=== PATIENT | male | born 1945 | race Caucasian/White ===

== ENCOUNTER → 2017-08-02 | Outpatient (CLI) | payer OTHER ==
[~2017-08-02] MED LIST: ADULT LOW DOSE81 MG PO; ALLOPURINOL 30300 M1 PO; ASPIRIN325 PO; BENICAR40 MG PO; CRESTOR20 MG PO; EFFIENT10 MG PO; FISH OIL 1,001000 M1 PO; GLIPIZIDE XL10 MG PO; GLUCOPHAGE1000 MG PO; LIPITOR10 MG PO; NORVASC10 MG PO; OMEPRAZOLE20 M2 PO; TOPROL XL50 MG PO
== END ==
LOC: ULTRA 11:13
DX: M79.662 Pain in left lower leg (principal)

== ENCOUNTER → 2019-08-16 | Outpatient (CLI) | payer OTHER | LOC: SJCVCIMAG 08:28 | DX: I10 Essential (primary) hypertension (principal); N28.1 Cyst of kidney, acquired; Z87.891 Personal history of nicotine dependence ==

== ENCOUNTER → 2020-06-12 | Outpatient (CLI) | payer OTHER | LOC: SJCVCIMAG 09:32 | PROVIDERS: ATTEND Internal Medicine Cardiovascular Disease | DX: I35.8 Other nonrheumatic aortic valve disorders (principal); I11.9 Hypertensive heart disease without heart failure; I25.10 Atherosclerotic heart disease of native coronary artery without angina pectoris; Z87.891 Personal history of nicotine dependence ==

== ENCOUNTER → 2020-11-19 | Outpatient (CLI) | payer OTHER | LOC: SJCVCIMAG 08:26 | PROVIDERS: ATTEND Internal Medicine Cardiovascular Disease | DX: I08.0 Rheumatic disorders of both mitral and aortic valves (principal); I11.9 Hypertensive heart disease without heart failure; E78.5 Hyperlipidemia, unspecified; I48.91 Unspecified atrial fibrillation; I25.10 Atherosclerotic heart disease of native coronary artery without angina pectoris ==

== ENCOUNTER → 2020-12-10 | Outpatient (CLI) | payer OTHER ==
[~2020-12-10] VITALS: Ht 182.9 cm; Wt 111.0 kg
[2020-12-10 07:59] LABS: HEMATOCRIT 38.9 % (42.0-52.0); HEMOGLOBIN 13.1 gm/dL (14.0-18.0); MCH 34.6 pg (26.0-34.0); MCHC 33.7 g/dL (28.0-37.0); MCV 102.7 fL (80.0-100.0); RBC 3.79 mil/uL (4.50-6.00); RDW 13.2 % (10.5-14.5); WBC 5.9 thou/uL (4.0-11.0)
[2020-12-10 08:05] VITALS: BP 171/81
[2020-12-10 08:10] LABS: CALCIUM 9.2 mg/dL (8.5-10.1); CREATININE 0.9 mg/dL (0.7-1.3); POTASSIUM 3.4 mmol/L (3.5-5.1); TOTAL BILIRUBIN 0.4 mg/dL (0.2-1.0)
[2020-12-10 08:27] LABS: TOTAL PROTEIN 7.4 g/dL (6.4-8.2)
== END | disposition home or self-care (01) ==
LOC: CATH 06:41
PROVIDERS: Internal Medicine Infectious Disease; ATTEND Internal Medicine Cardiovascular Disease
DX: I48.91 Unspecified atrial fibrillation (principal); I10 Essential (primary) hypertension; E78.5 Hyperlipidemia, unspecified; M10.9 Gout, unspecified; Z98.890 Other specified postprocedural states; Z20.822 Contact with and (suspected) exposure to COVID-19; Z79.899 Other long term (current) drug therapy; Z85.46 Personal history of malignant neoplasm of prostate